=== PATIENT | male | born 1955 | race Two or more races ===

== ENCOUNTER → 2016-10-16 | Outpatient (CLI) | payer OTHER ==
--- NOTE | 2016-10-16 16:41 | RAD ---
PROCEDURE MRI lumbar spine without contrast. HISTORY Low back pain with bilateral leg radiculopathy for 2 years, numbness TECHNIQUE Sagittal and axial T1 and T2 and sagittal STIR images were acquired of the lumbar spine. Contrast: None COMPARISON None FINDINGS Lumbar vertebral body stature is preserved. There is negligible anterior spondylolisthesis at L4-5. There is mild to moderate degenerative disc disease L1-2. Conus terminates normally at T12-L1. There is somewhat diffuse narrowing of the lumbar spinal canal on a developmental basis. There is no significant focal marrow edema. There is small posterior annular tear L1-2. Not fully included, there may be distention of urinary bladder, appearance of somewhat thickened martinez of the visualized superior urinary bladder. L1-2: There is mild prominence of posterior epidural fat and buckling of the ligamentum flavum. There is shallow posterior mostly central protrusion. Combination of findings results in moderate spinal stenosis. Neural foramina are adequate. L2-3: There is mild prominence of posterior epidural fat and buckling of the ligamentum flavum as well as facet hypertrophic change. There is negligible disc osteophyte complex. Combination of findings results in overall mild spinal stenosis, somewhat greater degree of right lateral recess stenosis. Neural foramina are adequate L3-4: There is mild to moderate facet degenerative change and mild buckling of the ligamentum flavum. There is prominence of posterior epidural fat. There is negligible disc osteophyte complex. There is minimal narrowing of the anterior, inferior neural foramina bilaterally. There is overall moderate spinal stenosis. L4-5: There is fairly severe buckling of the ligamentum flavum and moderate facet degenerative change. There is severe spinal stenosis, lateral recess stenosis bilaterally with impingement of the descending L5 nerve roots. There is mild, left greater than right neural foramina compromise. L5-S1: There is mild facet hypertrophic change. Spinal canal is overall adequate. Neural foramina are adequate. IMPRESSION 1. There is severe spinal stenosis L4-5, moderate spinal stenosis at L3-4 and L1-2 and to a lesser degree at L2-3 as described. 2. There is multilevel mild neural foramina compromise as described. 3. There is negligible anterior spondylolisthesis at L4-5. There is multilevel lumbar facet degenerative change. 4. There may be distention of the urinary bladder although poorly evaluated, possible urinary bladder wall thickening otherwise difficult to evaluate on this exam. 5. There is mild to moderate degenerative disc disease L1-2. Electronically signed by: Andrew Engle MD (Oct 16, 2016 16:40:24)
== END | disposition home or self-care (01) ==
LOC: MRI 15:48
DX: M51.36 Other intervertebral disc degeneration, lumbar region (principal); M43.16 Spondylolisthesis, lumbar region; M48.06 Spinal stenosis, lumbar region; I00 Rheumatic fever without heart involvement
CPT/HCPCS: 72148

== ENCOUNTER → 2018-11-20 | Outpatient (CLI) | payer OTHER ==
--- NOTE | 2018-11-20 12:03 | RAD ---
MRI Lumbar Spine without contrast History: Worsening low back pain, bilateral leg radiculopathy Technique: Multiplanar, multi sequential noncontrast MR imaging was performed of the lumbar spine. Comparison: 10/16/2016 Findings: Lumbar vertebral body stature is unchanged. There is again negligible grade 1 anterior spondylolisthesis at L4-5. Conus terminates near L1-L2. There is again diffuse narrowing of the lumbar spinal canal on a developmental basis. There is no significant marrow edema. There is mild degenerative disc disease L1-2, mild disc desiccation more inferiorly. L1-L2: There is again prominence of posterior epidural fat. There is mild buckling of the ligament flavum and facet into change. There is again moderate attenuation of the thecal sac on developmental basis and due to posterior epidural lipomatosis. Neural foramina are adequate. L2-L3: There is again prominence of posterior epidural fat. There is mild buckling of the liver flavum. There is again facet degenerative change. There is negligible disc osteophyte complex. There is again mild to moderate attenuation of the thecal sac primarily from epidural lipomatosis. Neural foramina are adequate. L3-L4: There is again facet degenerative change and buckling of the ligamentum flavum. There is mild prominence of posterior epidural fat. There is again negligible disc osteophyte complex. There is mild narrowing of the inferior right neural foramen greater distally. Disc osteophyte complex and shallow superimposed protrusion now contacts the undersurface of proximal extraforaminal right L3 nerve root. There is somewhat increased moderate to severe attenuation of the thecal sac mostly from posteriorly by epidural lipomatosis. There is very mild narrowing of the left neural foramen. L4-L5: There is again fairly severe buckling of the ligamentum flavum and moderate facet degenerative change. There is minimal bulge. There is again severe spinal stenosis with lateral recess stenosis and impingement of the descending L5 nerve roots, effacement of subarachnoid space. There is minimal inferior neural foramina compromise as seen previously. L5-S1: There is mild facet degenerative change. There is prominence of epidural fat posteriorly as well as anteriorly, limited preserved subarachnoid space. Right neural foramen is adequate, mild narrowing of the left neural foramen primarily from posteriorly by facet. Impression: 1. There is again severe spinal stenosis at L4-5. There is lesser degree of spinal stenosis as described L1-L2 through L3-4 in part on developmental basis in combination with epidural lipomatosis. 2. There is mild neural foramina compromise bilaterally at L3-4 and L4-5 and on the left at L5-S1. There is now disc osteophyte complex and shallow protrusion contacting the proximal extraforaminal right L3 nerve root at L3-4. Electronically signed by: Jose Engle MD (11/20/2018 12:00 PM) [id number]
== END | disposition home or self-care (01) ==
LOC: MRI 10:17
PROVIDERS: ATTEND Family Medicine
DX: M48.07 Spinal stenosis, lumbosacral region (principal); M51.26 Other intervertebral disc displacement, lumbar region; M43.16 Spondylolisthesis, lumbar region; M51.36 Other intervertebral disc degeneration, lumbar region; M25.78 Osteophyte, vertebrae; E88.2 Lipomatosis, not elsewhere classified
CPT/HCPCS: 72148